=== PATIENT | female | born 1935 ===

== ENCOUNTER 2017-05-09 23:23 | Emergency (ER) | payer MEDICARE ==
--- NOTE | 2017-05-10 02:03 | ED NURSING NOTES ---
Clinical Report - Nurses [place] [address] [place] [address] 05/09/2017 23:26 [id number] TRI[facility] Triage time 23:38 May 09 2017. Acuity: LEVEL 3. Chief Complaint: (Blurred vision, Fatigue). SEPSIS SCREEN: Sepsis Screen: negative. Negative (no infection suspected/documented). MAXIMO COMA SCORE: Gould Coma Scale: 15- eyes open spontaneously (4); best verbal response- oriented x 4 (5); best motor response- obeys commands (6). --23:46 Najma Rogers 23:38 05/09/17. BP: 111/46. HR: 62. RR: 20. O2 saturation: 99% on room air. Temp: 98.5 F (oral). Pain level now: 0/10. --23:46 Najma Rogers. Weight: 81.6 kg. Height/Length: 62 inches Per Patient. BMI: 32.9. --23:44 Najma Rogers. Medications Levothyroxine Sodium Oral (Tablet 50 mcg), daily. --23:39 Najma Rogers Atenolol Oral (Tablet 25 mg), daily. --23:39 Najma Rogers Atorvastatin Calcium Oral (Tablet 20 mg), daily. --23:40 Najma Rogers MetFORMIN HCl Oral (Tablet 500 mg) 2 tablets, 2x a day. --23:40 Najma Rogers Protonix Oral (Packet 40 mg), daily. --23:40 Najma Rogers Montelukast Sodium Oral (Tablet 10 mg) 1 tablet, at bedtime. --23:41 Najma Rogers Magnesium Oxide Oral (Tablet 400 mg). --23:42 Najma Rogers Calcium + D + K Oral. --23:42 Najma Rogers Fexofenadine HCl Oral. --23:43 Najma Rogers. Allergies No Known Drug Allergy. --23:42 Najma Rogers. Medication/allergy information source: the patient. --23:46 Najma Rogers. History Arrived by private vehicle. Historian: patient. Accompanied by family. This started today. ( Patient reports she has felt fatigued all day. She reports she noticed her blood pressure to be elevated around 140/74 systolic. she states then she began having some blurred vision.). PAST MEDICAL HX: Immunizations: up-to-date. The patient is post-menopausal. SOCIAL HX: Never smoker. No alcohol use or drug use. No infectious disease exposure. ABUSE ASSESSMENT: No report of abuse. FALL RISK ASSESSMENT: Fall risk assessment completed. No fall risk identified. NUTRITIONAL RISK ASSESSMENT: The nutritional risk assessment revealed no deficiencies. FUNCTIONAL ASSESSMENT: Functional assessment: no impairments noted. LEARNING NEEDS ASSESSMENT: The learning needs assessment revealed no barriers. SKIN INTEGRITY ASSESSMENT: Skin integrity risk assessment completed. No skin integrity risk identified. --23:46 Najma Rogers. PROBLEMS: Thyroid Disease. Anemia. Hypertension. --23:43 Najma Rogers. ADDITIONAL SURGERIES: Bladder Suspension. Colon rupture and repair . Tonsillectomy. --23:49 Najma Rogers. Interventions ID band on patient. To treatment room. --23:46 Najma Rogers. PHYSICAL ASSESSMENT GENERAL / NEURO / PSYCH: Alert. Oriented X 4. Appears in no acute distress. HEENT: No facial asymmetry noted. Mucous membranes are pink. RESPIRATORY: Respirations not labored. CVS: Normal sinus rhythm noted. GI / : Abdomen soft and nontender. SKIN: Skin is warm and dry. Normal skin turgor. --23:46 Najma Rogers. NURSING PROGRESS NOTES 23:47 05/09/17. Pulse oximeter and NIBP monitor placed on patient; monitor alarms on. Patient gowned. Reassurance given to the patient. Two patient identifiers checked. Call light placed in reach. Side rails up x 1. Bed placed in lowest position. Brakes of bed on. Patient ready for evaluation- chart flagged and ED physician notified. --23:47 Najma Rogers 00:17 05/10/2017 Site #1 started via IV in the right antecubital space with an 20g angiocath, with aseptic technique and good blood return; one attempt. Blood drawn: rainbow set. Labeled in the presence of the patient and sent to the lab. Saline lock flushed with 10 mL saline. --00:27 Jeevan Rogersnah Patient ID band checked for patient name and birthdate: patient confirmed. Blood samples drawn from the right antecubital space peripheral IV site by nurse ; labeled in presence of the patient and sent to lab: rainbow set. Line flushed with 10 mL normal saline post blood draw. --00:28 Ken, Najma 00:43 05/10/17. BP: 114/45. HR: 60. RR: 20. O2 saturation: 99% on room air. --00:45 Ken Najma EKG time: (00:35 May 10 2017). EKG was performed by a tech and shown to the ED physician. --00:46 Najma Rogers 01:51 05/10/17. BP: 120/45. HR: 61. RR: 20. O2 saturation: 100% on room air. --01:51 KenJeevan caballeronah Patient ID band checked for patient name and birthdate: patient confirmed. Instructions provided to collect clean catch urine and patient verbalized understanding. Clean catch urine collected with return of ella-colored clear urine; sample sent to lab for urinalysis. ( Patient assisted up to restroom with help of RN, returned to bed and monitor.). --01:52 Najma Rogers. DISPOSITION / DISCHARGE 02:20 05/10/17. Condition at departure: stable. The goals identified in the patient's plan of care were met. No learning barriers present. Discharge instructions provided and reviewed with the patient and family. Reviewed need for increased fluid intake. Patient and family verbalized understanding. Written instructions provided in Polish. ( Follow up with your PCP in one week. Stop taking your Atorvastatin per ER physician. Return if symptoms worsen. Drink plenty of fluids. Check your blood pressure and record readings for monitoring by your PCP. Patient and family verbalized understanding and had no additional questions at this time.). The patient was discharged by the physician. She was discharged home and accompanied by family. She left the Emergency Department ambulatory and via private vehicle. Family member driving. FALL RISK ASSESSMENT: Fall risk assessment completed. No fall risk identified. --02:52 Najma Rogers 02:20 05/10/17. BP: 120/50. HR: 60. RR: 20. O2 saturation: 99% on room air. Temp: 98 F (oral). Pain level now: 0/10. --02:52 Najma Rogers 02:20 05/10/2017 Site #1 removed upon discharge. Catheter intact. Bandaid applied. --02:52 Najma Rogers. Locked/Released at 05/10/2017 2:53 by Najma Rogers,
--- NOTE | 2017-05-10 02:03 | ED ORDER SUMMARY ---
..... Patient: SORAYA KHAN OrderSheet [facility] VisitID: [id number] [place] [address] 82y, F Registration Date/Time: 05/09/2017 ORDER SHEET Weight: 81.6 kg Allergies: No Known Drug Allergy GENERAL ORDERS: Chest 1V Urgent (00:11 05/10/2017 Elvis RUSSELL) (Ack 0:14 AMcQuoid ER Tech1) (0:32 AMcQuoid ER Tech1) Sales Attendant (Continuous) (00:05/10/2017 Elvis RUSSELL) (Ack 0:14 AMcQuoid ER Tech1) (0:27 HSoule) UA-Culture if indicated Urgent (00:05/10/2017 Elvis RUSSELL) (Ack 0:14 AMcQuoid ER Tech1) (1:29 AMcQuoid ER Tech1) Cardiac Panel Stat (00:05/10/2017 Elvis RUSSELL) (Ack 0:14 AMcQuoid ER Tech1) (0:32 AMcQuoid ER Tech1) TSH Urgent (00:05/10/2017 Elvis RUSSELL) (Ack 0:14 AMcQuoid ER Tech1) (0:32 AMcQuoid ER Tech1) Pulse oximeter (00:05/10/2017 Elvis RUSSELL) (0:12 HSoule) EKG - ER Stat (00:05/10/2017 Elvis RUSSELL) (Ack 0:14 AMcQuoid ER Tech1) (0:27 HSoule) MEDICATION ORDERS: IV FLUIDS: IV Saline Lock (00:05/10/2017 Elvis RUSSELL) (Ack 0:12 HSoule) (0:27 HSoule) ORDER SHEET NOTES: [Electronically signed by Najma Rogers (02:53 05/10/2017)] [Electronically signed by Von Keating MD (20:52 05/10/2017)] [Electronically locked/signed by Najma Rogers (02:53 05/10/2017)]
--- NOTE | 2017-05-10 02:03 | ED ORDER SUMMARY ---
..... Patient: SORAYA KHAN OrderSheet [facility] VisitID: [id number] [place] [address] 82y, F Registration Date/Time: 05/09/2017 ORDER SHEET Weight: 81.6 kg Allergies: No Known Drug Allergy GENERAL ORDERS: Chest 1V Urgent (00:11 05/10/2017 Elvis RUSSELL) (Ack 0:14 AMcQuoid ER Tech1) (0:32 AMcQuoid ER Tech1) Broommaking Supervisor (Continuous) (00:05/10/2017 Elvis RUSSELL) (Ack 0:14 AMcQuoid ER Tech1) (0:27 HSoule) UA-Culture if indicated Urgent (00:05/10/2017 Elvis RUSSELL) (Ack 0:14 AMcQuoid ER Tech1) (1:29 AMcQuoid ER Tech1) Cardiac Panel Stat (00:05/10/2017 Elvis RUSSELL) (Ack 0:14 AMcQuoid ER Tech1) (0:32 AMcQuoid ER Tech1) TSH Urgent (00:05/10/2017 Elvis RUSSELL) (Ack 0:14 AMcQuoid ER Tech1) (0:32 AMcQuoid ER Tech1) Pulse oximeter (00:05/10/2017 Elvis RUSSELL) (0:12 HSoule) EKG - ER Stat (00:05/10/2017 Elvis RUSSELL) (Ack 0:14 AMcQuoid ER Tech1) (0:27 HSoule) MEDICATION ORDERS: IV FLUIDS: IV Saline Lock (00:05/10/2017 Elvis RUSSELL) (Ack 0:12 HSoule) (0:27 HSoule) ORDER SHEET NOTES: [Electronically signed by Najma Rogers (02:53 05/10/2017)] [Electronically signed by Von Keating MD (20:52 05/10/2017)] [Electronically locked/signed by Najma Rogers (02:53 05/10/2017)]
--- NOTE | 2017-05-10 02:03 | ED CLINICAL REPORT ---
Clinical Report - Physicians/Mid Levels [facility] [address] [place] [address] 05/09/2017 23:26 [id number] Time Seen: 23:58 May 09 2017. Arrived- By private vehicle. Historian- patient. HISTORY OF PRESENT ILLNESS Chief Complaint: DIZZINESS and WEAKNESS. ( patient feels that she is having side effects to her new medicine atenolol which was started 2 days ago. She is taking 25 mg a day due to high blood pressure. This was started 2 days ago and since then patient has taken her blood pressure prior to taking the pill and feels that her blood pressure is normal and that she doesn't need pill. Today she felt weak and dizzy fatigued after taking this blood pressure pill.). Severity described as moderate at its maximum. When seen in the E.D., severity described as mild. Modifying factors- relieved by nothing. Not worsened by anything. Described as feeling light-headed, faint and weak all over. This started today and is still present. No nausea or vomiting. Similar symptoms previously: None. Recent medical care: The patient was seen recently at another facility in the office. REVIEW OF SYSTEMS No headache, double vision, fainting episodes, head injury or chest pain. No palpitations, black stools, bloody stools, fever or sore throat. No cough, difficulty breathing, abdominal pain, diarrhea or skin rash. No chills. The patient has had weakness. No difficulty walking. All systems otherwise negative, except as recorded above. PAST HISTORY ( Thyroid Disease. Anemia. Hypertension. ADDITIONAL SURGERIES: Bladder Suspension. Colon rupture and repair . Tonsillectomy.). No history of stroke, heart disease, lung disease, neurological disease or GI disease. No history of diabetes mellitus. Has not had GI bleeding. No history of myocardial infarction. SOCIAL HISTORY Never smoker. No alcohol use or drug use. ADDITIONAL NOTES The nursing notes have been reviewed. PHYSICAL EXAM Vital Signs: 05/09/2017 23:38 BP: 111/46. HR: 62. RR: 20. O2 saturation: 99%. Temp: 98.5 F. Pain level now: 0/10. Appearance: Alert. No acute distress. Eyes: Pupils equal, round and reactive to light. No nystagmus. ENT: Normal ENT inspection. TM's normal. Moist mucous membranes. Pharynx normal. Neck: Normal inspection. Neck supple. CVS: Normal heart rate and rhythm. Heart sounds normal. Pulses normal. Respiratory: No respiratory distress. Breath sounds normal. Abdomen: Soft and nontender. Back: Normal inspection. Skin: Normal skin color. No rash. Extremities: Extremities exhibit normal ROM. No lower extremity edema. Neuro: Alert. Oriented X 3. Mood/affect normal. Speech normal. Cranial nerves normal (as tested). No cerebellar findings. No motor deficit. No sensory deficit. Reflexes normal. LABS, X-RAYS, AND EKG EKG: Normal sinus rhythm. Normal P waves. Normal QRS complex. Q waves in lead V1 and V2. Normal axis. Normal ST and T waves. The study has been interpreted contemporaneously. The study has been independently viewed by me. The EKG appears to be a good tracing. Chest X-ray: No acute disease. (mild bibasilar atx). Views: AP (portable). Technique: good. The X-rays were independently viewed by me and interpreted contemporaneously by me. Laboratory Tests: UA-Culture if indicated: (SYLWIA: 05/10/2017 01:25) ( MsgRcvd 05/10/2017 01:55) Final results Test Result Flag Units (Reference) URINE COLOR YELLOW URINE APPEARANCE CLEAR URINE GLUCOSE NEGATIVE (NEGATIVE) URINE BILIRUBIN NEGATIVE (NEGATIVE) URINE KETONE NEGATIVE (NEGATIVE) URINE SPECIFIC GRAVITY 1.015 (1.010-1.030) URINE PH 6.0 (5.0-8.0) URINE PROTEIN NEGATIVE (NEGATIVE) URINE UROBILINOGEN 1.0 EU/dL (0.2-1.0) URINE NITRITE NEGATIVE (NEGATIVE) URINE BLOOD NEGATIVE (NEGATIVE) URINE LEUK ESTERASE NEGATIVE (NEGATIVE) URINE RBC 0-1 rbc/hpf (0-1) URINE WBC RARE wbc/hpf (0-1) URINE EPITHELIAL CELLS 0-1 EPI/hpf (0-5) URINE BACTERIA NONE SEEN (NONE SEEN) URINE COMMENT CULT NOT INDICATED URINE CULTURES ARE SET-UP BASED ON THE FOLLOWING CRITERIA:POSITIVE NITRITEPOSITIVE LEUKOCYTE ESTERASEGREATER THAN 10 WHITE BLOOD CELLSMODERATE (2+) OR GREATER BACTERIA CBC w Diff: (SYLWIA: 05/10/2017 00:20) ( [facility] 05/10/2017 00:43) Final results Test Result Flag Units (Reference) WHITE BLOOD COUNT 8.3 K/uL (4.5-11.5) RED BLOOD COUNT 4.05 M/uL (4.00-5.20) HEMOGLOBIN 11.8 L gm/dL (12.0-16.0) HEMATOCRIT 35.5 L % (36.0-46.0) MEAN CELL VOLUME 88 fL (80-100) MEAN CORPUSCULAR HGB 29 pg (26-34) MEAN CORPUSCULAR HGB CONC 33 g/dL (31-37) RED CELL DISTRIBUTION WIDTH 14.6 % (11.6-14.8) PLATELET COUNT 219 K/uL (150-400) NEUTROPHIL % 55.1 % (50-75) LYMPH % 29.3 % (25-40) MONO % 7.3 % (3-14) EOSINOPHIL % 8.0 H % (0-4) BASOPHIL % 0.3 % (0-2) TSH: (SYLWIA: 05/10/2017 00:20) ( [facility] 05/10/2017 01:11) Final results Test Result Flag Units (Reference) THYROID STIMULATING HORMONE 4.017 H uIU/mL (0.30-3.74) CHEM 13 PANEL: (SYLWIA: 05/10/2017 00:20) ( [facility] 05/10/2017 01:02) Final results Test Result Flag Units (Reference) GLUCOSE 137 H mg/dL (70-110) BUN 10 mg/dL (7-18) CREATININE 0.9 mg/dL (0.6-1.3) Estimated GFR >60 mL/min Estimated GFR- >60 mL/min Note: Persistent reduction over 3 months in eGFR<60 mL/min/1.73 m2 defines CKD. Patients with eGFR values>=60 mL/min/1.73 m2 may also have CKD if evidence ofpersistent proteinuria. Additional information may be foundat www.kidney.org. SODIUM 136 mmol/L (136-145) POTASSIUM 3.8 mmol/L (3.5-5.1) CHLORIDE 107 mmol/L (98-107) CARBON DIOXIDE 24 mmol/L (21-32) CALCIUM 8.4 L mg/dL (8.5-10.1) TOTAL PROTEIN 6.3 L g/dL (6.4-8.2) ALBUMIN 2.8 L g/dL (3.3-5.0) BILIRUBIN, TOTAL 0.5 mg/dL (0.0-1.0) ALKALINE PHOSPHATASE 101 U/L (46-116) AST (SGOT) 17 U/L (15-37) ALT (SGPT) 23 U/L (12-78) CPK 67 U/L (24-260) MAGNESIUM 2.1 mg/dL (1.8-2.4) TROPONIN I <0.05 ng/mL (0.00-1.5) TROPONIN REFERENCE RANGE:<0.1 NEGATIVE0.1-1.5 INDETERMINANT>1.5 POSITIVE . PROGRESS AND PROCEDURES Course of Care: heplock. Patient/family counseled. Disposition: Discharged. Condition: stable. CLINICAL IMPRESSION Intolerance to atenolol. INSTRUCTIONS Drink plenty of fluids. Warnings: Further evaluation is necessary. GENERAL WARNINGS: Return or contact your physician immediately if your condition worsens or changes unexpectedly, if not improving as expected, or if other problems arise. Your Current Medications: STOP TAKING THE FOLLOWING MEDICATIONS: Atenolol Oral : Tablet 25 mg, daily. CONTINUE TAKING THE FOLLOWING MEDICATIONS: Atorvastatin Calcium Oral : Tablet 20 mg, daily. Calcium + D + K Oral. Fexofenadine HCl Oral. Levothyroxine Sodium Oral : Tablet 50 mcg, daily. Magnesium Oxide Oral : Tablet 400 mg. MetFORMIN HCl Oral : Tablet 500 mg, 2 tablets 2x a day. Montelukast Sodium Oral : Tablet 10 mg, 1 tablet at bedtime. Protonix Oral : Packet 40 mg, daily. Follow-up: Follow up with your doctor in one week. Call for an appointment. Understanding of the discharge instructions verbalized by patient and family. (Electronically signed by Von Keating MD 05/10/2017 20:52)
--- NOTE | 2017-05-10 06:35 | DIAGNOSTIC IMAGING REPORT ---
PROCEDURE: XR CHEST 1 VIEW INDICATION: WEAK TECHNIQUE: Portable AP view 12:25 a.m. COMPARISON: None. FINDINGS: Minor bibasilar atelectasis. Heart and mediastinum are normal. Thorax is normal. IMPRESSION: 1. Minor bibasilar atelectasis.
--- NOTE | 2017-05-10 20:52 | ED DISCHARGE INSTRUCTIONS ---
Patient: SORAYA KHAN General Instructions [facility] VisitID: [id number] [place] [address] 82y, F Registration Date/Time: 05/09/2017 Intolerance to atenolol. INSTRUCTIONS Drink plenty of fluids. Warnings: Further evaluation is necessary. GENERAL WARNINGS: Return or contact your physician immediately if your condition worsens or changes unexpectedly, if not improving as expected, or if other problems arise. Your Current Medications: STOP TAKING THE FOLLOWING MEDICATIONS: Atenolol Oral : Tablet 25 mg, daily. CONTINUE TAKING THE FOLLOWING MEDICATIONS: Atorvastatin Calcium Oral : Tablet 20 mg, daily. Calcium + D + K Oral. Fexofenadine HCl Oral. Levothyroxine Sodium Oral : Tablet 50 mcg, daily. Magnesium Oxide Oral : Tablet 400 mg. MetFORMIN HCl Oral : Tablet 500 mg, 2 tablets 2x a day. Montelukast Sodium Oral : Tablet 10 mg, 1 tablet at bedtime. Protonix Oral : Packet 40 mg, daily. Follow-up: Follow up with your doctor in one week. Call for an appointment. Understanding of the discharge instructions verbalized by patient and family. (Electronically signed by Von Keating MD 05/10/2017 20:52)
--- NOTE | 2017-05-10 20:52 | ED MED RECONCILIATION SUMMARY ---
Patient: SORAYA KHAN Medication Reconciliation Report [facility] VisitID: [id number] [address] [place] [address] 82y, F Registration Date/Time: 05/09/2017 Weight: 81.6 kg Height/Length: 62 in. BMI: 32.9 ALLERGIES: No Known Drug Allergy The patient's Home Medications are listed below: STOP TAKING THE FOLLOWING MEDICATIONS: Atenolol Oral (25 mg), daily CONTINUE TAKING THE FOLLOWING MEDICATIONS: Atorvastatin Calcium Oral (20 mg), daily Calcium + D + K Oral Fexofenadine HCl Oral Levothyroxine Sodium Oral (50 mcg), daily Magnesium Oxide Oral (400 mg) MetFORMIN HCl Oral (500 mg) 2 tablets, 2x a day Montelukast Sodium Oral (10 mg) 1 tablet, at bedtime Protonix Oral (40 mg), daily The source(s) of the original Home Medication information: patient The following Medications were given to the patient in the Emergency Department: None. The following Medications were prescribed to the patient: None.
--- NOTE | 2017-05-10 20:52 | ED MAR SUMMARY ---
..... Medication Administration Record [facility] [address] [place], [place] [id number] Patient: SORAYA KHAN Visit ID: [id number] 82y, F Weight: 81.6 kg Height/Length: 62 in BMI: 32.9 ALLERGIES: No Known Drug Allergy
--- NOTE | 2017-05-10 20:52 | ED MED RECONCILIATION SUMMARY ---
Patient: SORAYA KHAN Medication Reconciliation Report [facility] VisitID: [id number] [address] [place] [address] 82y, F Registration Date/Time: 05/09/2017 Weight: 81.6 kg Height/Length: 62 in. BMI: 32.9 ALLERGIES: No Known Drug Allergy The patient's Home Medications are listed below: STOP TAKING THE FOLLOWING MEDICATIONS: Atenolol Oral (25 mg), daily CONTINUE TAKING THE FOLLOWING MEDICATIONS: Atorvastatin Calcium Oral (20 mg), daily Calcium + D + K Oral Fexofenadine HCl Oral Levothyroxine Sodium Oral (50 mcg), daily Magnesium Oxide Oral (400 mg) MetFORMIN HCl Oral (500 mg) 2 tablets, 2x a day Montelukast Sodium Oral (10 mg) 1 tablet, at bedtime Protonix Oral (40 mg), daily The source(s) of the original Home Medication information: patient The following Medications were given to the patient in the Emergency Department: None. The following Medications were prescribed to the patient: None.
--- NOTE | 2017-05-10 20:52 | ED MAR SUMMARY ---
..... Medication Administration Record [facility] [address] [place], [place] [id number] Patient: SORAYA KHAN Visit ID: [id number] 82y, F Weight: 81.6 kg Height/Length: 62 in BMI: 32.9 ALLERGIES: No Known Drug Allergy
--- NOTE | 2017-05-10 20:52 | ED DISCHARGE INSTRUCTIONS ---
Patient: SORAYA KHAN General Instructions [facility] VisitID: [id number] [place] [address] 82y, F Registration Date/Time: 05/09/2017 Intolerance to atenolol. INSTRUCTIONS Drink plenty of fluids. Warnings: Further evaluation is necessary. GENERAL WARNINGS: Return or contact your physician immediately if your condition worsens or changes unexpectedly, if not improving as expected, or if other problems arise. Your Current Medications: STOP TAKING THE FOLLOWING MEDICATIONS: Atenolol Oral : Tablet 25 mg, daily. CONTINUE TAKING THE FOLLOWING MEDICATIONS: Atorvastatin Calcium Oral : Tablet 20 mg, daily. Calcium + D + K Oral. Fexofenadine HCl Oral. Levothyroxine Sodium Oral : Tablet 50 mcg, daily. Magnesium Oxide Oral : Tablet 400 mg. MetFORMIN HCl Oral : Tablet 500 mg, 2 tablets 2x a day. Montelukast Sodium Oral : Tablet 10 mg, 1 tablet at bedtime. Protonix Oral : Packet 40 mg, daily. Follow-up: Follow up with your doctor in one week. Call for an appointment. Understanding of the discharge instructions verbalized by patient and family. (Electronically signed by Von Keating MD 05/10/2017 20:52)
== END 2017-05-10 02:20 | disposition home or self-care (01) ==
LOC: ED SRH 23:23
DX: R53.1 Weakness (principal); T44.7X5A Adverse effect of beta-adrenoreceptor antagonists, initial encounter; I10 Essential (primary) hypertension; Z79.899 Other long term (current) drug therapy
CPT/HCPCS: 90004; 90100; 90616; 92610; 92720; 93140; 95059